=== PATIENT | male | born 1970 | race Caucasian/White ===

== ENCOUNTER → 2017-09-24 | Outpatient (CLI) | payer BC, OTHER ==
[~2017-09-24] VITALS: Ht 177.8 cm; Wt 156.3 kg
[~2017-09-24] MED LIST: BUPR-266 PO; CYAN100073 PO; FRS/40 PO; HYDR-3126 PO; LISI20TA3 PO; METH-307 PO; MULT-506 PO; NAPR-1169 PO; OMEG10007 PO; PANT40TA PO; RXC5 PO; SERT-234 PO; SILD100T PO; TOPI100T20 PO; testosterone gel TOP
[2017-09-24 13:49] VITALS: Ht 177.8 cm; Wt 156.3 kg
--- NOTE | 2017-09-24 14:40 | PAT Medication Instructions ---
Service Date Sep 24, 2017. Current Home Medication List Bupropion Hcl (Bupropion Hcl Er), 150 MG PO BID Cyanocobalamin (B12), Unknown Dose PO QAM Fish Oil ([place]-3), 2 CAP PO QAM Furosemide (Lasix), 40 MG PO QAM Multivitamin (Multivitamin), 1 TAB PO QAM Naproxen (Naprosyn), 500 MG PO QAM Pantoprazole (Protonix), 40 MG PO QAM Sertraline (Zoloft), 200 MG PO QAM Sildenafil Citrate (Viagra), Unknown Dose PO UD PRN for prn Topiramate (Topamax), 100 MG PO QAM [testosterone gel ], 1 APPLN TOP UD Medication Instructions For Your Scheduled Surgery -Contact your surgeon for instructions for: Naproxen (Naprosyn), 500 MG PO QAM - Hold the following medications 2 weeks prior to surgery: Fish Oil ([place]-3), 2 CAP PO QAM - Hold the following medications 24 hours prior to surgery: [testosterone gel ], 1 APPLN TOP UD - Hold the following medications the morning of surgery: Sildenafil Citrate (Viagra), Unknown Dose PO UD PRN for prn Furosemide (Lasix), 40 MG PO QAM Multivitamin (Multivitamin), 1 TAB PO QAM Cyanocobalamin (B12), Unknown Dose PO QAM - Take the following medications the morning of surgery with a sip of water: Topiramate (Topamax), 100 MG PO QAM Pantoprazole (Protonix), 40 MG PO QAM Sertraline (Zoloft), 200 MG PO QAM Bupropion Hcl (Bupropion Hcl Er), 150 MG PO BID - Take the following medications as scheduled the night before surgery: Sildenafil Citrate (Viagra), Unknown Dose PO UD PRN for prn Bupropion Hcl (Bupropion Hcl Er), 150 MG PO BID If you have any questions please call us at [phone] or [phone] or [phone]
--- NOTE | 2017-09-24 15:00 | DIAGNOSTIC IMAGING REPORT ---
CHEST 2 VIEWS ROUTINE CLINICAL HISTORY: Preoperative chest COMPARISON STUDY: No previous studies for comparison. FINDINGS: The cardiac and mediastinal contours are normal. There is no evidence of focal pulmonary consolidation. There is no evidence of failure. No pleural effusions are visualized.[ IMPRESSION: No active disease in the chest. Electronically signed by: Elia Connell M.D. 09/24/2017 2:59 PM Dictated Date/Time: 09/24/2017 2:58 PM
[2017-09-24 15:47] LABS: BASO % 0.5 %; BASO ABS # 0.04 K/uL (0-0.2); EOS % 6.4 %; EOS ABS # 0.48 K/uL (0-0.5); HEMATOCRIT 44.6 % (42-52); HEMOGLOBIN 15.4 g/dL (14.0-18.0); IG# 0.04 K/uL (0.00-0.02); LYMPH % 28.5 %; LYMPH ABS # 2.14 K/uL (1.2-3.4); MEAN CELL VOLUME 82.7 fL (80-100); MEAN CORPUSCULAR HEMOGLOBIN 28.6 pg (25-34); MEAN CORPUSCULAR HGB CONC 34.5 g/dl (32-36); MEAN PLATELET VOLUME 8.9 fL (7.4-10.4); MONO % 7.7 %; MONO ABS # 0.58 K/uL (0.11-0.59); NEUT % 56.4 %; NEUT ABS # 4.24 K/uL (1.4-6.5); PLATELET COUNT 170 K/uL (130-400); RED CELL DISTRIBUTION WIDTH CV 13.4 % (11.5-14.5); RED CELL DISTRIBUTION WIDTH SD 39.8 fL (36.4-46.3); WHITE BLOOD COUNT 7.52 K/uL (4.8-10.8)
[2017-09-24 15:54] LABS: CALCIUM 8.7 mg/dl (8.5-10.1); CREATININE 1.11 mg/dl (0.60-1.40); POTASSIUM 3.4 mmol/L (3.5-5.1)
== END | disposition home or self-care (01) ==
LOC: C.LAB 08:00 → EDSTATUS 10-07 12:42
PROVIDERS: ATTEND Orthopaedic Surgery Orthopaedic Surgery of the Spine
DX: Z01.811 Encounter for preprocedural respiratory examination (principal); Z01.812 Encounter for preprocedural laboratory examination

== ENCOUNTER 2017-12-15 21:34 | Emergency (ER) | payer OTHER, BC ==
[~2017-12-15] VITALS: Ht 177.8 cm; Wt 152.4 kg
[~2017-12-15 21:34] MED LIST changes: -HYDR-3126 PO; -LISI20TA3 PO; -METH-307 PO; -RXC5 PO
[2017-12-15 22:02] VITALS: Ht 177.8 cm; Wt 152.4 kg
[2017-12-15] MEDS ORDERED: KETOROLAC TROMETHAMINE 30 MG/ML VIAL IV STA (22:25)
[2017-12-15] MEDS ORDERED: SODIUM CHLORIDE 0.9% 1000ML 1,000 ML IV ONE (22:30)
[2017-12-15] MEDS ORDERED: ALBUT/IPRATROP 3MG/0.5MG NEB 3 ML VIAL INH ONE (22:30)
[2017-12-15] MEDS ORDERED: BUPR300T43 PO (22:42)
[2017-12-15 23:06] LABS: BASO % 0.3 %; BASO ABS # 0.02 K/uL (0-0.2); EOS % 7.5 %; EOS ABS # 0.53 K/uL (0-0.5); HEMATOCRIT 43.6 % (42-52); HEMOGLOBIN 15.2 g/dL (14.0-18.0); IG# 0.03 K/uL (0.00-0.02); LYMPH % 28.5 %; MEAN CELL VOLUME 82.1 fL (80-100); MEAN CORPUSCULAR HEMOGLOBIN 28.6 pg (25-34); MEAN CORPUSCULAR HGB CONC 34.9 g/dl (32-36); MEAN PLATELET VOLUME 8.6 fL (7.4-10.4); MONO % 7.4 %; MONO ABS # 0.52 K/uL (0.11-0.59); NEUT % 55.9 %; NEUT ABS # 3.92 K/uL (1.4-6.5); PLATELET COUNT 152 K/uL (130-400); RED CELL DISTRIBUTION WIDTH SD 39.2 fL (36.4-46.3); WHITE BLOOD COUNT 7.02 K/uL (4.8-10.8)
[2017-12-15 23:23] VITALS: TEMP 37; O2SAT 98
[2017-12-15 23:25] LABS: INFLUENZA B ANTIGEN Neg for Influ B (NEG)
[2017-12-15 23:26] LABS: ALBUMIN 3.6 gm/dl (3.4-5.0); CALCIUM 8.2 mg/dl (8.5-10.1); CREATININE 1.32 mg/dl (0.60-1.40); POTASSIUM 2.8 mmol/L (3.5-5.1)
[2017-12-15 23:29] LABS: TOTAL PROTEIN 7.1 gm/dl (6.4-8.2)
[2017-12-16] MEDS ORDERED: OPTIRAY 320 IV PRN (00:45)
[2017-12-16] MEDS ORDERED: METHYLPREDNISOLONE 125 MG VIAL IV STA (00:54)
[2017-12-16] MEDS ORDERED: AZITHROMYCIN 250 MG TAB PO ONE (01:00)
[2017-12-16] MEDS ORDERED: PRED20TA2 PO (01:30)
[2017-12-16] MEDS ORDERED: AZIT250T PO (01:30)
[2017-12-16] MEDS ORDERED: VNTHFA/IN INH (01:30)
[2017-12-16 01:39] VITALS: BP 156/89; PULSE 64; O2SAT 95
--- NOTE | 2017-12-16 03:24 | EMERGENCY ROOM VISIT NOTE ---
History First contact with patient: 22:09 Chief Complaint: COUGH Stated Complaint: SEVER COUGH, GURGLING IN CHEST Nursing Triage Summary: pt arrives to room sweaty and loopy states "I'm coughing up all kinds of crazy stuff." when asked if exposed to flu like SX, states nephews just recently got over flu pt reports "I took dayquil/nyquil, whatever it is and it's good stuff, I feel loopy." History of Present Illness The patient is a 47 year old male who presents to the Emergency Room with complaints of coughing and difficulty breathing over the past 3 or 4 days. He reports having a fever at home that does improve with ibuprofen and Tylenol. The patient states that he has extended family members who recently were treated for influenza. The patient is concerned for his well-being as he is getting in 3 days. The patient considers himself usually healthy. He does not have recent travel history. He states his cough has been productive. He rates his discomfort a 7/10. Review of Systems More than 10 systems were reviewed and otherwise negative with the exception of history of present illness. Past Medical/Surgical History Medical Problems: (1) DDD (degenerative disc disease) Family History No pertinent family history Social History Smoking Status: Former Smoker Drug Use: none Marital Status: Current/Historical Medications Scheduled Albuterol Hfa (Ventolin Hfa), 2 PUFFS INH QID Azithromycin (Zithromax), 250 MG PO DAILY Bupropion Hcl (Bupropion Hcl Xl), 300 MG PO DAILY Cyanocobalamin (B12), 1,000 MCG PO QAM Fish Oil ([place]-3), 2 CAP PO QAM Furosemide (Lasix), 40 MG PO QAM Multivitamin (Multivitamin), 1 TAB PO QAM Naproxen (Naprosyn), 500 MG PO QAM Pantoprazole (Protonix), 40 MG PO QAM Prednisone (Prednisone Tab), 2 TAB PO DAILY Sertraline (Zoloft), 200 MG PO QAM [testosterone gel ], 1 APPLN TOP UD Physical Exam Vital Signs Date Time Temp Pulse Resp B/P (MAP) Pulse Ox O2 Delivery O2 Flow Rate FiO2 12/16/17 01:39 64 20 156/89 95 12/16/17 00:56 70 16 146/86 96 Room Air 12/15/17 23:45 73 5/1/18 23:23 98 Room Air 12/15/17 23:23 37.0 69 16 143/81 96 12/15/17 22:12 98 Room Air 12/15/17 22:02 37.0 78 20 159/94 97 Room Air Physical Exam VITALS: Vitals are noted on the nurse's note and reviewed by myself. Vital signs stable. GENERAL: Well-developed, well-nourished, obese white male who appears ill but not toxic. EARS: External ear normal. External auditory canals clear, tympanic membranes pearly khan without erythema or effusion bilaterally. EYES: Pupils equal round and reactive to light and accommodation. Conjunctivae without injection, sclerae without icterus. Extraocular movements intact. NOSE: Patent, turbinates without inflammation or discharge. MOUTH: Mucous membranes moist. Tonsils are not enlarged. Pharynx without erythema, blood, or exudate. Uvula midline. Airway patent. NECK: Supple without nuchal rigidity. No lymphadenopathy. No thyromegaly. Cervical spine is nontender. HEART: Regular rate and rhythm without murmurs gallops or rubs. LUNGS: Coarse breath sounds bilateral with crackles best appreciated in the left lower robins Medical Decision & Procedures ER Provider Diagnostic Interpretation: Preliminary Findings Only See Final Report For Complete Findings CTA CHEST: No PE Left lower lobe infiltrate Laboratory Results 12/15/17 22:49 Red Blood Count 5.31, Mean Corpuscular Volume 82.1, Mean Corpuscular Hemoglobin 28.6, Mean Corpuscular Hemoglobin Concent 34.9, Mean Platelet Volume 8.6, Neutrophils (%) (Auto) 55.9, Lymphocytes (%) (Auto) 28.5, Monocytes (%) (Auto) 7.4, Eosinophils (%) (Auto) 7.5, Basophils (%) (Auto) 0.3, Neutrophils # (Auto) 3.92, Lymphocytes # (Auto) 2.00, Monocytes # (Auto) 0.52, Eosinophils # (Auto) 0.53, Basophils # (Auto) 0.02 12/15/17 22:49 Test 12/15/17 22:49 12/15/17 22:50 12/15/17 22:57 White Blood Count 7.02 K/uL (4.8-10.8) Red Blood Count 5.31 M/uL (4.7-6.1) Hemoglobin 15.2 g/dL (14.0-18.0) Hematocrit 43.6 % (42-52) Mean Corpuscular Volume 82.1 fL (80-100) Mean Corpuscular Hemoglobin 28.6 pg (25-34) Mean Corpuscular Hemoglobin Concent 34.9 g/dl (32-36) Platelet Count 152 K/uL (130-400) Mean Platelet Volume 8.6 fL (7.4-10.4) Neutrophils (%) (Auto) 55.9 % Lymphocytes (%) (Auto) 28.5 % Monocytes (%) (Auto) 7.4 % Eosinophils (%) (Auto) 7.5 % Basophils (%) (Auto) 0.3 % Neutrophils # (Auto) 3.92 K/uL (1.4-6.5) Lymphocytes # (Auto) 2.00 K/uL (1.2-3.4) Monocytes # (Auto) 0.52 K/uL (0.11-0.59) Eosinophils # (Auto) 0.53 K/uL (0-0.5) Basophils # (Auto) 0.02 K/uL (0-0.2) RDW Standard Deviation 39.2 fL (36.4-46.3) RDW Coefficient of Variation 13.0 % (11.5-14.5) Immature Granulocyte % (Auto) 0.4 % Immature Granulocyte # (Auto) 0.03 K/uL (0.00-0.02) Anion Gap 7.0 mmol/L (3-11) Est Creatinine Clear Calc Drug Dose 103.6 ml/min Estimated GFR () 74.5 Estimated GFR (Non- 64.2 BUN/Creatinine Ratio 8.0 (10-20) Calcium Level 8.2 mg/dl (8.5-10.1) Total Bilirubin 0.4 mg/dl (0.2-1) Aspartate Amino Transf (AST/SGOT) 43 U/L (15-37) Alanine Aminotransferase (ALT/SGPT) 45 U/L (12-78) Alkaline Phosphatase 66 U/L (45-117) Total Protein 7.1 gm/dl (6.4-8.2) Albumin 3.6 gm/dl (3.4-5.0) Globulin 3.5 gm/dl (2.5-4.0) Albumin/Globulin Ratio 1.0 (0.9-2) Influenza Type A Antigen Neg for Influ A (NEG) Influenza Type B Antigen Neg for Influ B (NEG) Bedside Troponin I < 0.030 ng/ml (0-0.045) Medications Administered Medications (Trade) Dose Ordered Sig/Diego Route Start Time Stop Time Status Last Admin Dose Admin Sodium Chloride 1,000 ml @ 999 mls/hr Q1H1M ONCE IV 12/15/17 22:30 12/15/17 23:30 DC 12/15/17 22:49 999 MLS/HR Ketorolac Tromethamine (Toradol Inj) 30 mg NOW STAT IV 12/15/17 22:25 12/15/17 22:28 DC 12/15/17 22:50 30 MG Albuterol/ Ipratropium (Duoneb) 3 ml NOW ONCE INH 12/15/17 22:30 12/15/17 22:31 DC 12/15/17 22:49 3 ML Methylprednisolone Sodium Succinate (Solu-Medrol IV) 125 mg NOW STAT IV 12/16/17 00:54 12/16/17 00:55 DC 12/16/17 01:04 125 MG Azithromycin (Zithromax Tab) 500 mg NOW ONCE PO 12/16/17 01:00 12/16/17 01:01 DC 12/16/17 01:04 500 MG ED Course Physical exam and history were performed. Nursing notes, EMR, and Medication List were personally reviewed. Patient appears to have difficulty breathing with an exam revealing crackles in the left lower lungs. IV access was established and labs were obtained. The patient was hydrated and medicated as above. He was given a DuoNeb as he was coughing during the physical exam. EKG was performed and was normal sinus rhythm without acute ST elevation. Chest x-ray was performed. The patient's blood work is as above and was reviewed. He does not have a significantly elevated white blood cell count or gross anemia. His potassium is slightly low. He has a negative troponin 1. On reevaluation the patient continued to have coughing and difficulty catching his breath. His chest x-ray was reviewed and may suggest a lower left pneumonia, however I was concerned that he may have PE or other etiology for his symptoms. A CTA was performed and does reveal a left lower infiltrate. The patient was started on Zithromax and given Solu-Medrol here in the department. This did help improve his symptoms. Overall the patient appears well for discharge home. He is felt to have a community-acquired pneumonia and will be given a continuation prescription of Zithromax, prednisone, and an albuterol inhaler. He is to follow-up with his primary care physician for further care management. He was otherwise invited back to the ER with any new, worsening, or concerning symptoms. The chart was completed utilizing [employer] Speech Voice Recognition Software. Grammatical errors, random word insertions, pronoun errors, and incomplete sentences are an occasional consequence of this system due to software limitations, ambient noise, and hardware issues. Any formal questions or concerns about the content, text, or information contained within the body of this dictation should be directly addressed to the provider for clarification. . Medical Decision Differential diagnosis: Etiologies such as viral syndrome, otitis, pharyngitis, pneumonia, influenza, meningitis, urinary tract infection, sepsis, bacteremia, as well as others were entertained. Impression Primary Impression: Pneumonia Departure Information Dispostion Home / Self-Care Condition GOOD Prescriptions Albuterol Hfa (VENTOLIN HFA) 200 Puffs/18199 Mcg Aers 2 PUFFS INH QID for 5 Days, #1 INHALER Prov: Herberth Adams PA-C 12/16/17 Prednisone (Prednisone Tab) 20 Mg Tab 2 TAB PO DAILY for 4 Days, #8 TAB Prov: Herberth Adams PA-C 12/16/17 Azithromycin (Zithromax) 250 Mg Tab 250 MG PO DAILY for 4 Days, #4 TAB Prov: Herberth Adams PA-C 12/16/17 Forms HOME CARE DOCUMENTATION FORM, IMPORTANT VISIT INFORMATION Patient Instructions My [facility] Additional Instructions You were seen and evaluated today on an emergency basis only. This is not a substitute for, or an effort to provide, complete comprehensive medical care. It is not possible to recognize and treat all injuries or illnesses in a single emergency department visit. For this reason it is recommended that you followup with your primary care physician in the next 1-2 days for recheck of your condition. You will need a repeat chest x-ray about 1-2 weeks in the future to ensure improvement of the pneumonia. Take Zithromax 250 mg daily for the next 4 days Take prednisone as prescribed You may use the albuterol inhaler 2 puffs every 4-6 hours as needed for coughing or wheezing For baseline pain relief you may alternate ibuprofen and acetaminophen every 4 hours for pain control. Take 600 mg ibuprofen (Advil) and then 4 hours later take 1000 mg acetaminophen (Tylenol). Do not take more than 3000 mg acetaminophen in a single day. You are welcome to return to the emergency department anytime with new, worsening, or concerning symptoms.
--- NOTE | 2017-12-16 06:56 | DIAGNOSTIC IMAGING REPORT ---
CT ANGIOGRAPHY OF THE CHEST, PULMONARY EMBOLUS PROTOCOL CLINICAL HISTORY: The liver. Cough. COMPARISON STUDY: Chest radiograph September 2017 and December 15, 2017. TECHNIQUE: Following IV administration of 94 mL of Optiray-320, helical axial images of the chest were obtained utilizing the pulmonary embolus protocol. Maximal intensity projections and sagittal and coronal reformats were viewed on an independent 3D workstation. IV contrast was administered without complication. A dose lowering technique was utilized adhering to the principles of ALARA. CT DOSE: 1690.63 mGy.cm FINDINGS: No pulmonary emboli are identified although the segmental and subsegmental pulmonary arteries are suboptimally assessed on this exam due to respiratory motion. The heart is mildly enlarged. There is no pericardial effusion. There are prominent mediastinal bilateral hilar lymph nodes. Central airways are patent. Moderate left lower lobe airspace opacities are noted. This suggest an infectious process. There are minimal right upper lobe airspace opacities. Tree-in-bud nodularity is noted. There is no cavitation. No pneumothorax or pleural effusion is noted. The central airways are patent. Visualized portions of the upper abdomen demonstrate fatty infiltration of the liver and mild splenomegaly. Gallbladder is surgically absent. There are no suspicious osseous lesions. IMPRESSION: 1. No pulmonary emboli identified although segmental and subsegmental pulmonary arteries suboptimally assessed due to respiratory motion. 2. Moderate left lower lobe airspace opacity suggestive of pneumonia. Minimal right upper lobe opacity favors an infectious process as well. 3. Mild cardiomegaly. 4. Fatty infiltration of the liver. 5. Mild splenomegaly. Electronically signed by: Herbie Blunt M.D. 12/16/2017 6:54 AM Dictated Date/Time: 12/16/2017 6:47 AM
--- NOTE | 2017-12-16 07:08 | DIAGNOSTIC IMAGING REPORT ---
CHEST 2 VIEWS ROUTINE CLINICAL HISTORY: Cough. Left side crackles. Fever. COMPARISON STUDY: Chest radiograph September 2017. FINDINGS: Lung volumes are normal. No pneumothorax or pleural effusion is noted. No consolidation is noted. Cardiac size is normal. Mediastinal contours are normal. No evidence for pulmonary edema. IMPRESSION: No acute cardiopulmonary findings. Electronically signed by: Herbie Blunt M.D. 12/16/2017 7:07 AM Dictated Date/Time: 12/16/2017 7:07 AM
== END 2017-12-16 01:40 | disposition home or self-care (01) ==
LOC: C.EDB 21:34 → C.EDA 12-16 01:40
DX: J18.9 Pneumonia, unspecified organism (principal); E66.9 Obesity, unspecified; Z87.891 Personal history of nicotine dependence

== ENCOUNTER 2017-12-20 13:10 | Emergency (ER) | payer OTHER, BC ==
[~2017-12-20] VITALS: Ht 177.8 cm; Wt 149.0 kg
[~2017-12-20 13:10] MED LIST changes: +AZIT250T PO; -BUPR-266 PO; +BUPR300T43 PO; +PRED20TA2 PO; -SILD100T PO; -TOPI100T20 PO; +VNTHFA/IN INH
[2017-12-20 13:13] VITALS: TEMP 36.6; Ht 177.8 cm; Wt 149.0 kg
[2017-12-20] MEDS ORDERED: ALBUT/IPRATROP 3MG/0.5MG NEB 3 ML VIAL INH STA (13:28)
[2017-12-20] MEDS ORDERED: BENZONATATE 100MG CAP PO ONE (13:30)
--- NOTE | 2017-12-20 14:01 | DIAGNOSTIC IMAGING REPORT ---
CHEST 2 VIEWS ROUTINE HISTORY: 47 years-old Male cough eval for pna acute cough COMPARISON: Chest radiograph 12/15/2017, CTA chest 12/16/2017 TECHNIQUE: PA and lateral views of the chest FINDINGS: Cardiomediastinal and hilar silhouettes are within normal limits. No pneumothorax, pleural effusion, focal airspace consolidation or overt pulmonary edema. Previously described opacities seen on comparison CTA of the chest are not identified on today's study. Degenerative changes of the shoulders and spine. Degenerative changes of the spine. Cholecystectomy clips noted. IMPRESSION: No acute process. The above report was generated using voice recognition software. It may contain grammatical, syntax or spelling errors. Electronically signed by: Gilberto Smith M.D. 12/20/2017 2:00 PM Dictated Date/Time: 12/20/2017 1:58 PM
[2017-12-20] MEDS ORDERED: BENZ100C84 PO (14:08)
[2017-12-20 14:19] VITALS: BP 146/90; PULSE 72; O2SAT 94
--- NOTE | 2017-12-20 17:41 | EMERGENCY ROOM VISIT NOTE ---
History Report prepared by Ambrocio: Shauna Siegel Under the Supervision of: Dr. Shai Gurrola M.D. First contact with patient: 13:19 Chief Complaint: ILLNESS Stated Complaint: PNEUMONIA, CHEST PAINS WHEN BREATHING History of Present Illness The patient is a 47 year old male who presents to the Emergency Room with complaints of persistent cough starting 1 week ago. The patient was diagnosed with pneumonia several days ago. He has finished his antibiotics to no relief. He has also been taking over the counter cough medicines to no relief. He is coughing up a small amount of clear sputum. His nose is runny. He is having sharp right sided chest pain which worsens with coughing. He has had a fever intermittently. His highest fever was 103. He last had a fever yesterday. He denies any vomiting. He denies any history of asthma or emphysema. He does smoke 0.5 ppd, but has been smoking less recently. He has a history of hypertension. Source of History: patient, spouse/significant other Onset: 1 week ago Position: chest Quality: other (cough) Timing: other (persistent) Associated Symptoms: + fevers, + chest pain, No vomiting Note: Pt reports runny nose. Review of Systems See HPI for pertinent positives & negatives. A total of 10 systems reviewed and were otherwise negative. Past Medical & Surgical Medical Problems: (1) DDD (degenerative disc disease) Family History No pertinent family history stated. Social History Smoking Status: Current Every Day Smoker Drug Use: none Marital Status: Current/Historical Medications Scheduled Albuterol Hfa (Ventolin Hfa), 2 PUFFS INH QID Bupropion Hcl (Bupropion Hcl Xl), 300 MG PO DAILY Cyanocobalamin (B12), 1,000 MCG PO QAM Fish Oil ([place]-3), 2 CAP PO QAM Furosemide (Lasix), 40 MG PO QAM Multivitamin (Multivitamin), 1 TAB PO QAM Naproxen (Naprosyn), 500 MG PO QAM Pantoprazole (Protonix), 40 MG PO QAM Sertraline (Zoloft), 200 MG PO QAM [testosterone gel ], 1 APPLN TOP UD Scheduled PRN Benzonatate (Tessalon Perles), 200 MG PO Q8 PRN for Cough Allergies Coded Allergies: Midodrine (Unverified Allergy, Severe, NAUSEA, 12/20/17) Adhesives (Verified Allergy, Mild, RED AND INFLAMMED, 12/15/17) Dichloralphenazone (Verified Allergy, Mild, FELT FUNNY AND DIZZY, 12/15/17) Isometheptene (Verified Allergy, Mild, FELT FUNNY AND DIZZY, 12/15/17) Physical Exam Vital Signs Date Time Temp Pulse Resp B/P (MAP) Pulse Ox O2 Delivery O2 Flow Rate FiO2 12/20/17 14:19 72 22 146/90 94 Room Air 12/20/17 13:13 36.6 93 22 173/100 95 Room Air Physical Exam Constitutional: Vital signs reviewed. Eyes: Pupils are equal round reactive to light. Conjunctiva are noninjected. ENT: Pharynx is clear without erythema or exudate. Mucous membranes are moist. Neck supple without meningeal signs. Respiratory: Scattered expiratory wheezing. Coughing throughout exam. Breath sounds are equal bilaterally. Cardiovascular: Regular rate and rhythm. No rubs or gallops. GI: Soft, nondistended and nontender. Bowel sounds are present. Musculoskeletal: No peripheral edema. No lower extremity tenderness. Integumentary: No cyanosis. Neurological: The patient is awake and alert. No focal deficits. Psychiatric: Normal affect. Medical Decision & Procedures ER Provider Diagnostic Interpretation: X-ray results as stated below per interpretation by me and the radiologist: CHEST 2 VIEWS ROUTINE HISTORY: 47 years-old Male cough eval for pna acute cough COMPARISON: Chest radiograph 12/15/2017, CTA chest 12/16/2017 TECHNIQUE: PA and lateral views of the chest FINDINGS: Cardiomediastinal and hilar silhouettes are within normal limits. No pneumothorax, pleural effusion, focal airspace consolidation or overt pulmonary edema. Previously described opacities seen on comparison CTA of the chest are not identified on today's study. Degenerative changes of the shoulders and spine. Degenerative changes of the spine. Cholecystectomy clips noted. IMPRESSION: No acute process. The above report was generated using voice recognition software. It may contain grammatical, syntax or spelling errors. Electronically signed by: Gilberto Smith M.D. 12/20/2017 2:00 PM Dictated Date/Time: 12/20/2017 1:58 PM Medications Administered Medications (Trade) Dose Ordered Sig/Diego Route Start Time Stop Time Status Last Admin Dose Admin Albuterol/ Ipratropium (Duoneb) 3 ml NOW STAT INH 12/20/17 13:28 12/20/17 13:31 DC 12/20/17 13:35 3 ML Benzonatate (Tessalon Perles Cap) 200 mg NOW ONCE PO 12/20/17 13:30 12/20/17 13:31 DC 12/20/17 13:35 200 MG ED Course 1324: The patient was evaluated in room A2. A complete history and physical exam was performed. 1328: Duoneb 3 ml INH. 1330: Benzonatate 200 mg PO. 1404: Upon reevaluation, the patient appeared to have improvement of his symptoms. I discussed tonight's findings with him. He notes that he has an inhaler at home. He verbalized agreement of the treatment plan. He was discharged home. Medical Decision This is a 47-year-old male who presents with persistent cough and right-sided chest pain. Differential diagnosis includes pleurisy, pneumothorax, pneumonia, bronchitis. I did perform a limited focused review of portions of the patient' s old chart on the electronic medical record. The patient was seen here on the for coughing and fever. He was diagnosed with left lower lobe infiltrate on CT, no PE was noted. He was discharged on Zithromax and prednisone. I did evaluate the patient as noted above. I did treat the patient with a DuoNeb. He was also given Tessalon Perles 200 mg. I did order and personally review the patient's chest x-ray as described above. There is no evidence of pneumonia. I did reassess the patient. I did discuss the test results with him. I did recommend close follow-up with his doctor. I did give him a prescription for Tessalon Perles for his cough. He was told to take anti- inflammatories for his chest pain. He was offered a albuterol MDI but states he had one at home. Medication Reconcilliation Current Medication List: was personally reviewed by me Blood Pressure Screening Patient's blood pressure: Elevated blood pressure Blood pressure disposition: Referred to PCP Impression Primary Impression: Bronchitis Additional Impression: Chest wall pain Scribe Attestation The scribe's documentation has been prepared under my direct and personally reviewed by me in its entirety. I confirm that the note above accurately reflects all work, treatment, procedures, and medical decision making performed by me. Departure Information Dispostion Home / Self-Care Prescriptions Benzonatate (Tessalon Perles) 100 Mg Cap 200 MG PO Q8 Y for Cough, #20 CAP Prov: Shai Gurrola M.D. 12/20/17 Referrals [facility] Forms HOME CARE DOCUMENTATION FORM, IMPORTANT VISIT INFORMATION, WORK / SCHOOL INSTRUCTIONS Patient Instructions Bronchitis Acute, My [facility] Additional Instructions You have been examined and treated today on an emergency basis only. This is not a substitute for, or an effort to provide, complete comprehensive medical care. It is impossible to recognize and treat all injuries or illnesses in a single emergency department visit. It is therefore important that you follow up closely with your physician. Call as soon as possible for an appointment. Return for worsening symptoms or if you develop high fever, vomiting, or any other concerning symptoms. Problem Qualifiers
== END 2017-12-20 14:31 | disposition home or self-care (01) ==
LOC: C.EDB 13:11 → C.EDA 14:31
DX: J40 Bronchitis, not specified as acute or chronic (principal); Z87.01 Personal history of pneumonia (recurrent); F17.210 Nicotine dependence, cigarettes, uncomplicated; I10 Essential (primary) hypertension; Z79.899 Other long term (current) drug therapy; Z88.8 Allergy status to other drugs, medicaments and biological substances; Z91.048 Other nonmedicinal substance allergy status